=== PATIENT | female | born 1995 | race Native Hawaiian/Other Pacific Islander ===

== ENCOUNTER 2017-07-30 20:03 | Outpatient (CLI) | payer OTHER | END 2017-07-30 20:15 | disposition short-term general hospital (02) | LOC: AMB 20:03 | DX: M79.602 Pain in left arm (principal); V49.88XA Car occupant (driver) (passenger) injured in other specified transport accidents, initial encounter; Y92.414 Local residential or business street as the place of occurrence of the external cause | CPT/HCPCS: A0425; A0429 ==

== ENCOUNTER 2017-07-30 20:20 | Emergency (ER) | payer OTHER ==
[~2017-07-30] VITALS: Ht 154.9 cm; Wt 98.4 kg
== END 2017-07-30 21:40 | disposition home or self-care (01) ==
LOC: ED 20:20
DX: S40.012A Contusion of left shoulder, initial encounter (principal); V40.0XXA Car driver injured in collision with pedestrian or animal in nontraffic accident, initial encounter
CPT/HCPCS: 99282

== ENCOUNTER 2019-11-17 16:18 | Outpatient (CLI) | payer OTHER | END 2019-11-17 16:29 | disposition short-term general hospital (02) | LOC: AMB 16:18 | DX: R51 Headache (principal); R42 Dizziness and giddiness; V49.3XXA Car occupant (driver) (passenger) injured in unspecified nontraffic accident, initial encounter; Y92.89 Other specified places as the place of occurrence of the external cause | CPT/HCPCS: A0425; A0427 ==

== ENCOUNTER 2019-11-17 16:36 | Emergency (ER) | payer OTHER ==
[~2019-11-17] VITALS: Ht 154.9 cm; Wt 113.4 kg
[2019-11-17 17:43] LABS: PLATELET COUNT 276 K/uL (152-353)
[2019-11-17 17:46] LABS: POTASSIUM 3.4 mmol/L (3.6-5.2)
[2019-11-17 20:57] VITALS: BP 126/74; TEMP 98.1
== END 2019-11-17 20:58 | disposition still patient (30) ==
LOC: ED 16:36
PROVIDERS: Family Medicine
DX: R51 Headache (principal); S16.1XXA Strain of muscle, fascia and tendon at neck level, initial encounter; S39.012A Strain of muscle, fascia and tendon of lower back, initial encounter; V59.3XXA Occupant (driver) (passenger) of pick-up truck or van injured in unspecified nontraffic accident, initial encounter
CPT/HCPCS: 80053; 81000; 85027; 99283